=== PATIENT | male | born 1960 | race Caucasian/White ===

== ENCOUNTER 2018-05-19 06:11 | Inpatient (IN) | payer MEDICARE, MEDICAID, SELFPAY ==
[2018-05-06 14:00] VITALS: BMI 39.9
[2018-05-19 06:57] VITALS: BP 124/88; PULSE 67; RESP 16; TEMP 36.7; O2SAT 95; BMI 37.3
[2018-05-19] MEDS: LACTATED RINGERS 1,000 ML 42 ML IV (07:00)
[2018-05-19] MEDS: OXYCODONE IR 5 MG TABLET 10 MG PO (07:39)
[2018-05-19] MEDS: GABAPENTIN 400 MG CAPSULE 800 MG PO (07:39)
--- NOTE | 2018-05-19 07:41 | SUR.PREOP ---
pt has baseline numbness and tingling in left arm.
[2018-05-19] MEDS: CEFAZOLIN VIAL 3 GM in SODIUM CHLORIDE 0.9% 100 ML 200 ML IV (08:05)
--- NOTE | 2018-05-19 08:13 | PM.PREOP ---
Pre-operative Note Interval Note Pre-op Check: Yes History & Physical Reviewed by Physician, Yes Exam Performed and Yes History & Physical exam performed today by Physician Changes: No
[2018-05-19 08:44] VITALS: BP 137/94; PULSE 84; RESP 10; TEMP 37.3; O2SAT 95
[2018-05-19 08:49] VITALS: BP 125/71; PULSE 87; RESP 13; O2SAT 94
[2018-05-19 08:53] VITALS: BP 135/84; PULSE 76; RESP 14; TEMP 37.2; O2SAT 94
[2018-05-19 09:40] VITALS: BP 130/80; PULSE 76; RESP 16; TEMP 37.1; O2SAT 95
== END 2018-05-19 09:50 | disposition home or self-care (01) | DRG 552 ==
PROVIDERS: Admitting Provider Orthopaedic Surgery Orthopaedic Surgery of the Spine; PCP Family Medicine; Visit Provider Orthopaedic Surgery Orthopaedic Surgery of the Spine
DX: M47.22 Other spondylosis with radiculopathy, cervical region (principal); M48.02 Spinal stenosis, cervical region; G47.33 Obstructive sleep apnea (adult) (pediatric); F32.9 Major depressive disorder, single episode, unspecified; Z87.891 Personal history of nicotine dependence; Z53.8 Procedure and treatment not carried out for other reasons
CPT/HCPCS: J0330; J0690; J1100; J2250; J2405; J2704; J3010

== ENCOUNTER → 2020-05-18 22:09 | Outpatient (ROUT) | payer MEDICARE, MEDICAID, SELFPAY ==
[2020-05-18 22:27] LABS: Add Manual Diff / Slide Review NO; Basophils Absolute Auto 100 /uL (0-100); Basophils Percent Auto 0.9 % (0-2); Eosinophils Absolute Auto 200 /uL (0-450); Eosinophils Percent Auto 3.5 % (2-4); Hemoglobin 14.5 g/dL (13.5-17.5); Lymphocytes Absolute Auto 1900 /uL (1100-4500); Lymphocytes Percent Auto 27.2 % (25-40); Mean Corpuscular HGB Conc 33.7 % (30-36); Mean Corpuscular Hemoglobin 29.8 PG (26-34); Mean Corpuscular Volume 88.5 fL (80-100); Monocytes Absolute Auto 600 /uL (0-900); Monocytes Percent Auto 8.4 % (3-14); Neutrophils Absolute Auto 4300 /uL (1500-7000); Platelet Count 231 X10^3/uL (150-400); Red Blood Cell Count 4.86 X10^6/uL (4.5-5.9); Red Cell Distribution Width 15.4 % (11.6-14.8); White Blood Cell Count 7.1 X10^3/uL (4.5-11.0)
[2020-05-18 22:46] LABS: Erythrocyte Sedimentation Rate 4 MM/HR (0-15)
[2020-05-18 22:49] LABS: Alanine Aminotransferase 79 IU/L (<50); Albumin 4.2 g/dL (3.5-5.0); Albumin Globulin Ratio 1.6 (1.0-2.8); Alkaline Phosphatase 60 U/L (38-126); Aspartate Aminotransferase 50 IU/L (17-59); BUN Creatinine Ratio 12.2 (6-22); Bilirubin Total 0.7 mg/dL (0.2-1.3); Blood Urea Nitrogen 10 mg/dL (9-20); Carbon Dioxide 30 mmol/L (22-32); Chloride 108 mmol/L (98-107); Cholesterol 139 mg/dL (140-199); Estimated Glomerular Filt Rate > 60.0 mL/min (>60); Globulin 2.7 g/dL (1.7-4.1); Glucose 110 mg/dL (70-100); HDL Cholesterol 31 mg/dL (40-60); HEMOLYSIS < 15 (0-50); LDL Cholesterol Calculated 83 mg/dL (<100); Potassium 4.7 mmol/L (3.4-5.1); Sodium 143 mmol/L (137-145); Total Protein 6.9 g/dL (6.3-8.2); Triglycerides 124 mg/dL (35-150)
== END ==
PROVIDERS: PCP Family Medicine; Visit Provider Internal Medicine
DX: F32.9 Major depressive disorder, single episode, unspecified (principal); E78.2 Mixed hyperlipidemia; G89.4 Chronic pain syndrome; M13.0 Polyarthritis, unspecified
CPT/HCPCS: 80053; 80061; 84153; 85025; 85651

== ENCOUNTER → 2020-12-24 11:13 | Outpatient (CLI) | payer MEDICARE, MEDICAID, SELFPAY ==
[2020-12-24 14:20] LABS: COVID19 -Nasal RAPID Negative (Negative)
== END ==
PROVIDERS: PCP Family Medicine; Visit Provider Student in an Organized Health Care Education/Training Program
DX: Z20.822 Contact with and (suspected) exposure to COVID-19 (principal); Z01.812 Encounter for preprocedural laboratory examination
CPT/HCPCS: 87635; C9803

== ENCOUNTER → 2021-10-09 16:53 | Outpatient (CLI) | payer MEDICARE, MEDICAID, SELFPAY ==
--- NOTE | 2021-10-09 | DI.RAD.S_ITS ---
PROCEDURE: XR CHEST 2V INDICATIONS: Horrible upper airway and pulm congestion TECHNIQUE: 2 views of the chest were acquired. COMPARISON: [facility], CT, CT CHEST WITHOUT CONTRAST, 04/24/2020, 13:59. FINDINGS: Surgical changes and devices: Cervical spine hardware Lungs and pleura: No consolidation. Pulmonary vasculature engorgement. No pleural effusions or pneumothorax. Mediastinum: Mediastinal contours are unchanged. Heart size is within normal limits. Bones and chest wall: No suspicious bony abnormalities. Soft tissues appear unremarkable. IMPRESSION: Suspect pulmonary vasculature engorgement. Dictated by: Josue Singleton M.D. on 10/09/2021 at 16:21 Approved by: Josue Singleton M.D. on 10/09/2021 at 16:23
== END ==
PROVIDERS: PCP Internal Medicine; Referring Provider Internal Medicine; Visit Provider Internal Medicine
DX: R09.89 Other specified symptoms and signs involving the circulatory and respiratory systems (principal); J39.8 Other specified diseases of upper respiratory tract
CPT/HCPCS: 71046

== ENCOUNTER → 2022-01-16 15:52 | Outpatient (CLI) | payer MEDICARE, MEDICAID, SELFPAY ==
--- NOTE | 2022-01-16 | DI.MRI.S_ITS ---
PROCEDURE: MR LUMBAR SPINE WO CON INDICATIONS: SPONDYLOLIATHESIS, LUMBOSACRAL REGION TECHNIQUE: Noncontrast sagittal T1 spin echo and T2 fast echo, sagittal STIR, and T2 fast spin echo through the lumbar spine. In cases with scoliosis, additional coronal T2 fast spin echo may be performed. COMPARISON: [facility], MR, MR LUMBAR SPINE WITHOUT CONTRAST, 01/10/2020, 16:23. FINDINGS: Image quality: Excellent. Alignment and Curvature: There is normal bony alignment. Bone Marrow: Marrow is of normal overall signal. No acute vertebral body compression fractures. Spinal Cord: Conus medullaris terminates at the L1 level. Visualized cord demonstrates normal signal and size. Paraspinous Soft Tissues: No paravertebral masses. Discs: Multilevel mild degenerative disc desiccation is present most notable at L2-3 and L5-S1. L1-L2: No disc bulge, spinal stenosis or foraminal narrowing. No interval change. L2-L3: Mild disc bulge with effacement of the anterior thecal sac. Mild bilateral foraminal narrowing, unchanged. Facet and ligamentum flavum hypertrophy are present. L3-L4: Minimal disc bulge without spinal stenosis. Mild right and [id number] left foraminal narrowing with facet and ligamentum flavum hypertrophy, questionably minimally progressive on the left. L4-L5: Minimal disc bulge without spinal stenosis. Mild bilateral foraminal narrowing with facet and ligamentum flavum hypertrophy. No interval change. L5-S1: Minimal disc bulge without spinal stenosis. There is severe bilateral foraminal narrowing with bilateral compression of the exiting L5 nerve roots, stable compared to prior exam. Facet hypertrophy is present. IMPRESSION: Multilevel degenerative changes overall relatively stable compared to prior exam. Severe foraminal narrowing at L5-S1 with compression of the exiting nerve roots, unchanged. Dictated by: Bibi Sheffield M.D. on 01/16/2022 at 17:35 Approved by: Bibi Sheffield M.D. on 01/16/2022 at 17:39
== END ==
PROVIDERS: PCP Internal Medicine; Referring Provider Orthopaedic Surgery; Visit Provider Orthopaedic Surgery
DX: M43.17 Spondylolisthesis, lumbosacral region (principal); M47.816 Spondylosis without myelopathy or radiculopathy, lumbar region; M48.07 Spinal stenosis, lumbosacral region
CPT/HCPCS: 72148